=== PATIENT | female | born 1975 | race Caucasian/White ===

== ENCOUNTER 2017-06-01 10:25 | Emergency (ER) | END 2017-06-01 11:20 | disposition home or self-care (01) ==

== ENCOUNTER 2018-02-25 08:12 | Emergency (ER) | END 2018-02-25 09:34 | disposition home or self-care (01) ==

== ENCOUNTER 2018-02-27 07:55 | Emergency (ER) | END 2018-02-27 09:50 | disposition home or self-care (01) ==